=== PATIENT | female | born 1990 | race Caucasian/White ===

== ENCOUNTER 2021-10-30 20:03 | Inpatient (IN) | payer MEDICAID, SELFPAY ==
--- NOTE | ~2021-10-30 | XR_ITS ---
EXAMINATION: PORTABLE CHEST 1 VIEW CLINICAL INFORMATION: SOB . COMPARISON: No recent pertinent prior studies are available for comparison. TECHNIQUE: Portable frontal view of the chest was obtained. FINDINGS: The lungs are well expanded. No focal infiltrate, effusion, edema, or pneumothorax. Cardiac and mediastinal silhouettes are within normal limits for technique. No acute bony abnormality seen. XR/XR chest 1V IMPRESSION: No evidence of acute disease.
[2021-10-30 20:16] VITALS: BP 132/80; PULSE 128; RESP 18; TEMP 36.7; O2SAT 93; BMI 27.4
[2021-10-30] MEDS: Albuterol Sulfate 7.5 MG, Albuterol Sulfate (0.083%) 2.5 MG 10 MG INHALE ×2 (20:28→23:11)
[2021-10-30 20:29] VITALS: PULSE 125; RESP 18; O2SAT 98
[2021-10-30] MEDS: hydrOXYzine HCL 25 MG TABLET PO (21:18)
[2021-10-30 21:52] LABS: MANUAL DIFF FLAG NO
[2021-10-30 22:00] LABS: Basophils Absolute Auto 0.1 X10*3/uL (0.0-0.2); Basophils Percent Auto 0.3 % (0-2); Eosinophils Absolute Auto 0.1 X10*3/uL (0.0-0.4); Eosinophils Percent Auto 0.6 % (0-4); Hematocrit 37.3 % (37.0-47.0); Hemoglobin 12.9 g/dl (12.0-16.0); Imm Gran Abs Auto 0.22 X10*3/uL (0.00-0.03); Lymphocytes Absolute Auto 1.2 X10*3/uL (1.2-4.9); Lymphocytes Percent Auto 5.3 % (20-40); Mean Corpuscular HGB Conc 34.6 g/dl (31.0-35.0); Mean Corpuscular Hemoglobin 31.7 pg (27.0-33.0); Mean Corpuscular Volume 91.6 fL (80.0-98.0); Mean Platelet Volume 10.7 fL (9.4-12.3); Monocytes Absolute Auto 0.8 X10*3/uL (0.1-1.2); Monocytes Percent Auto 3.6 % (2-11); Neutrophils Absolute Auto 19.9 x10*3/uL (2.0-8.3); Neutrophils Percent Auto 89.2 % (45-73); Platelet Count 299 X10*3/uL (160-400); Red Blood Count 4.07 X10*6/uL (4.20-5.50); Red Cell Distribution Width 12.7 % (11.0-16.0); White Blood Count 22.3 X10*3/uL (4.8-10.8)
[2021-10-30 22:12] VITALS: BP 115/83; PULSE 122; RESP 20; TEMP 37
--- NOTE | 2021-10-30 22:12 | ED_ITS ---
HPI - SOB/Dyspnea General Chief Complaint: Dyspnea Stated Complaint: Asthma Time Seen by Provider: 10/30/21 20:15 Source: patient Mode of arrival: ambulatory History of Present Illness HPI Narrative: 31-year-old female with history of asthma presents increasing shortness of breath for the past 4 days without fever chills and denies any chest pain/palpitations. Patient denies any smoking history and states that she has been on 2 sequential steroid tapers and return from [place] 1 week ago and finished her taper from that visit yesterday. Patient states she is now coughing up greenish sputum and feels as though she may have a pneumonia. Related Data Allergies Allergy/AdvReac Type Severity Reaction Status Date / Time Unable to Assess Allergy Verified 10/30/21 20:15 Review of Systems Review of Systems: Pertinent positives and negatives as stated in HPI 10 point review of systems is otherwise negative. [facility] Past Medical History Source: nursing notes reviewed Social History Social History Advance Directives: No Advance Directives Information Provided: No Physical Exam Vital Signs: Vital Signs: Last Vital Signs Temp 98.6 F 10/30/21 22:12 Pulse 135 H 10/30/21 23:27 Resp 20 10/30/21 23:27 BP 98/63 10/30/21 23:27 Pulse Ox 98 10/30/21 23:27 O2 Del Method 10/30/21 23:27 O2 Flow Rate 2 10/30/21 23:27 Oxygen Flow Rate 2 10/30/21 20:16 BMI result Body Mass Index 27.4 VITAL SIGNS: Reviewed. GENERAL: Well developed, well nourished, in no acute distress. HEAD: Normocephalic/atraumatic EYES: PERRLA, EOMI EARS: Ext canals without abnormality OROPHARYNX: no oral lesions noted, posterior pharynx clear LUNGS: Tachypnea, expiratory wheeze, increased work of breathing. SpO2<93> CARDIOVASCULAR: Regular rate and rhythm without noted murmurs ABDOMEN: Soft, non-tender, non-distended with bowel sounds. MUSCULOSKELETAL: No tenderness, deformities, or effusions noted on gross inspection. EXTREMITIES: No cyanosis, clubbing or edema. SKIN: Inspection of the skin reveals no rashes NEUROLOGIC: Alert and oriented x 4. Strength and sensation to light touch were grossly intact x 4. Course Course Course Narrative: 31-year-old female with history and clinical presentation likely secondary to bronchitis and asthma, leukocytosis is secondary to steroids and the elevated lactic acid is secondary to patient's albuterol treatments. Patient received 2 hour long albuterol treatments, azithromycin, as well as 2 g of Mag sulfate Patient remains congested, nasal cannula supplemental oxygen was removed and patient is noted to be oxygenating at approximately 89-90% on room air. Patient did receive initial dose azithromycin, and patient is also quite anxious. I discussed the case with inpatient hospitalist who accepts admission. MDM - SOB/Dyspnea Lab Data Result diagrams: 10/30/21 21:46 10/30/21 21:46 Labs: Lab Results 10/30/21 10/30/21 10/30/21 Range/Units 21:46 21:46 21:46 WBC 22.3 H (4.8-10.8) X10*3/uL RBC 4.07 L (4.20-5.50) X10*6/uL Hgb 12.9 (12.0-16.0) g/dl Hct 37.3 (37.0-47.0) % MCV 91.6 (80.0-98.0) fL MCH 31.7 (27.0-33.0) pg MCHC 34.6 (31.0-35.0) g/dl RDW 12.7 (11.0-16.0) % Plt Count 299 (160-400) X10*3/uL MPV 10.7 (9.4-12.3) fL Immature Gran % (Auto) 1.0 H (0.0-0.4) % Neut % (Auto) 89.2 H (45-73) % Lymph % (Auto) 5.3 L (20-40) % Montgomery % (Auto) 3.6 (2-11) % Eos % (Auto) 0.6 (0-4) % Baso % (Auto) 0.3 (0-2) % Lymph # (Auto) 1.2 (1.2-4.9) X10*3/uL Montgomery # (Auto) 0.8 (0.1-1.2) X10*3/uL Eos # (Auto) 0.1 (0.0-0.4) X10*3/uL Baso # (Auto) 0.1 (0.0-0.2) X10*3/uL Abs Immat Gran (auto) 0.22 H (0.00-0.03) X10*3/uL Absolute Neuts (auto) 19.9 H (2.0-8.3) x10*3/uL Absolute Nucleated RBC 0.000 (0.0-0.012) X10*3/uL Nucleated RBC % (auto) 0.0 (0.0-0.2) /100WBC D-Dimer High Sensitivty NG/ML Sodium 137 (135-145) mmol/L Potassium 4.5 (3.3-5.1) mmol/L Chloride 97 (96-108) mmol/L Carbon Dioxide 23 (22-29) mmol/L Anion Gap 22 H (12-20) BUN 13 (9-16) mg/dL Creatinine 0.89 (0.5-1.4) mg/dL Estim Creat Clear Calc 81.3 Estimated GFR > 60 Random Glucose 209 H (60-115) mg/dL Lactic Acid 2.2 H* (0.5-2.0) mmol/L Calcium 9.4 (8.4-10.2) mg/dL Total Bilirubin 0.3 (0.0-1.0) mg/dL AST 26 (5-31) U/L ALT 18 (0-31) U/L Alkaline Phosphatase 45 (39-117) U/L Total Protein 7.0 (6.5-8.0) g/dL Albumin 4.0 (3.5-5.0) g/dL Beta HCG, Quant < 2 mIU/mL 10/30/21 Range/Units 23:06 WBC (4.8-10.8) X10*3/uL RBC (4.20-5.50) X10*6/uL Hgb (12.0-16.0) g/dl Hct (37.0-47.0) % MCV (80.0-98.0) fL MCH (27.0-33.0) pg MCHC (31.0-35.0) g/dl RDW (11.0-16.0) % Plt Count (160-400) X10*3/uL MPV (9.4-12.3) fL Immature Gran % (Auto) (0.0-0.4) % Neut % (Auto) (45-73) % Lymph % (Auto) (20-40) % Montgomery % (Auto) (2-11) % Eos % (Auto) (0-4) % Baso % (Auto) (0-2) % Lymph # (Auto) (1.2-4.9) X10*3/uL Montgomery # (Auto) (0.1-1.2) X10*3/uL Eos # (Auto) (0.0-0.4) X10*3/uL Baso # (Auto) (0.0-0.2) X10*3/uL Abs Immat Gran (auto) (0.00-0.03) X10*3/uL Absolute Neuts (auto) (2.0-8.3) x10*3/uL Absolute Nucleated RBC (0.0-0.012) X10*3/uL Nucleated RBC % (auto) (0.0-0.2) /100WBC D-Dimer High Sensitivty 204 NG/ML Sodium (135-145) mmol/L Potassium (3.3-5.1) mmol/L Chloride (96-108) mmol/L Carbon Dioxide (22-29) mmol/L Anion Gap (12-20) BUN (9-16) mg/dL Creatinine (0.5-1.4) mg/dL Estim Creat Clear Calc Estimated GFR Random Glucose (60-115) mg/dL Lactic Acid (0.5-2.0) mmol/L Calcium (8.4-10.2) mg/dL Total Bilirubin (0.0-1.0) mg/dL AST (5-31) U/L ALT (0-31) U/L Alkaline Phosphatase (39-117) U/L Total Protein (6.5-8.0) g/dL Albumin (3.5-5.0) g/dL Beta HCG, Quant mIU/mL Procedures EJ/Peripheral Line Arm R: Time Out Performed: No Skin Cleansed in Sterile Fashion: Yes Size (gauge): 20 IV Secured and Dressing Applied: Yes Patient Tolerated Procedure: well and no complications Additional Comments: Placed under ultrasound guidance. Discharge Plan Discharge Clinical Impression: Asthma with exacerbation Patient Disposition: Admitted As Inpatient
[2021-10-30 22:13] LABS: Alanine Aminotransferase 18 U/L (0-31); Alkaline Phosphatase 45 U/L (39-117); Anion Gap 22 (12-20); Aspartate Amino Transferase 26 U/L (5-31); Bilirubin Total 0.3 mg/dL (0.0-1.0); Blood Urea Nitrogen 13 mg/dL (9-16); Calcium 9.4 mg/dL (8.4-10.2); Carbon Dioxide 23 mmol/L (22-29); Chloride 97 mmol/L (96-108); Creatinine Clr Calc Pharmacy 81.3; Estimated Glomerular Filt Rate > 60; Glucose Random 209 mg/dL (60-115); Lactic Acid 2.2 mmol/L (0.5-2.0); Potassium 4.5 mmol/L (3.3-5.1); Sodium 137 mmol/L (135-145)
[2021-10-30] MEDS: Magnesium Sulfate/H2O 2 GM/50 ML PIGGYBACK IV (22:18)
[2021-10-30 22:20] LABS: HCG Quantitative < 2 mIU/mL
[2021-10-30] MEDS: 0.9 % Sodium Chloride 1,000 ML 999 ML IV (22:31)
[2021-10-30 23:19] LABS: D Dimer High Sensitivity 204 NG/ML
[2021-10-30 23:27] VITALS: BP 98/63; PULSE 135; RESP 20; O2SAT 98
[2021-10-30 23:50] LABS: Reflex Lactate? Lactic Acid Added
[2021-10-31] VITALS (8 sets, daily range): BP systolic 117–130; BP diastolic 73–90; PULSE 104–124; RESP 16–25; TEMP 36.3–37.1; O2SAT 90–98
--- NOTE | 2021-10-31 | ECG_ITS ---
Test Reason : CHEST TIGHTNESS Blood Pressure : / mmHG Vent. Rate : 109 BPM Atrial Rate : 109 BPM P-R Int : 132 ms QRS Dur : 070 ms QT Int : 328 ms P-R-T Axes : 058 046 040 degrees QTc Int : 441 ms Sinus tachycardia Otherwise normal ECG No previous ECGs available Referred By: Rachna Carlisle Electronically Signed By:YAW [employer]ATS
[2021-10-31] MEDS: Azithromycin 500 MG TABLET PO (00:05)
[2021-10-31 00:45] LABS: COVID-19 Test Negative (Negative)
[2021-10-31] MEDS: hydrOXYzine HCL 25 MG TABLET PO ×3 (00:45→18:33)
--- NOTE | 2021-10-31 01:46 | P.HPHOSP_ITS ---
History of Present Illness Date of Service: 10/31/21 Chief Complaint: Asthma exacerbation 31-year-old female with past medical history of asthma presents to the hospital on asthma exacerbation. Patient reports that her symptoms started yesterday associated with cough x3 days and green phlegm. Patient is very a nxious, room but reports wheezing, not responding to her inhalers or nebulizer at home. She reports that this is her 3rd hospital admission within the past 1 month for asthma exacerbation. She reports that besides this month she uses inhalers several times a week. She feels that her asthma is poorly controlled and very frustrated. She denies any fever or chills, no headache, no change in vision, no with chest pain, no abdominal pain nausea or vomiting, no diarrhea constipation, no urinary symptoms and no lower extremity edema. On arrival to the ED patient hemodynamically stable with O2 dropping to 88-90% on room air labs are significant for WBC count 22.3, lactic acid of 2.2, patient refused repeat blood work Review of Systems Review of Systems: Yes all other systems are reviewed and are negative [facility] Medical History (Updated 10/31/21 @ 06:34 by Madelyn Miller MD) Asthma Family History (Updated 10/31/21 @ 06:20 by Madelyn Miller MD) Other No family history of coronary artery disease Surgical History (Updated 10/31/21 @ 06:20 by Madelyn Miller MD) No pertinent past surgical history Social History (Updated 10/31/21 @ 06:33 by Madelyn Miller MD) Alcohol intake: current Patient Tobacco Use Status: Never used Tobacco Use of substances other than those prescribed or required for medical reasons: No Advance Directives: No Advance Directives Information Provided: No Meds Allergies Allergy/AdvReac Type Severity Reaction Status Date / Time Unable to Assess Allergy Verified 10/30/21 20:15 Physical Exam Vital Signs and Narrative: Vital Signs: Last Vital Signs Temp 98.6 F 10/30/21 22:12 Pulse 135 H 10/30/21 23:27 Resp 20 10/30/21 23:27 BP 98/63 10/30/21 23:27 Pulse Ox 98 10/30/21 23:27 O2 Del Method 10/30/21 23:27 O2 Flow Rate 2 10/30/21 23:27 Oxygen Flow Rate 2 10/30/21 20:16 BMI result Body Mass Index 27.4 Const: General: cooperative and no acute distress Orientation/cons ciousness: patient oriented x3 Eyes: General: appearance normal, both eyes and all related structures Pupils: Equal, round and reactive pupils present Resp: Other: decreased breath sounds Effort & Inspection: normal respiratory effort Cardio: Rate: regular rate Rhythm: regular rhythm GI: Palpation (GI): Soft to palpation Auscultation: normal bowel sounds Skin: General skin exam: no rashes or lesions noted Neuro: General: patient oriented x3 Cranial nerves: Yes Equal, round and reactive pupils present Cognition (Neuro): normal cognition Extrem: General: Yes normal to inspection and Yes no pedal edema Results Labs CBC and Chem 7: 10/30/21 21:46 10/30/21 21:46 Labs: Laboratory Results - last 24 hr 10/30/21 10/30/21 10/30/21 21:46 21:46 21:46 MCV 91.6 MCH 31.7 MCHC 34.6 RDW 12.7 Plt Count 299 MPV 10.7 Immature Gran % (Auto) 1.0 H Neut % (Auto) 89.2 H Lymph % (Auto) 5.3 L Woodson % (Auto) 3.6 Eos % (Auto) 0.6 Baso % (Auto) 0.3 Lymph # (Auto) 1.2 Woodson # (Auto) 0.8 Eos # (Auto) 0.1 Baso # (Auto) 0.1 Abs Immat Gran (auto) 0.22 H Absolute Neuts (auto) 19.9 H Absolute Nucleated RBC 0.000 Nucleated RBC % (auto) 0.0 D-Dimer High Sensitivty Anion Gap 22 H Estim Creat Clear Calc 81.3 Estimated GFR > 60 Random Glucose 209 H Lactic Acid 2.2 H* Calcium 9.4 Total Bilirubin 0.3 AST 26 ALT 18 Alkaline Phosphatase 45 Total Protein 7.0 Albumin 4.0 Beta HCG, Quant < 2 COVID-19 ([facility]IN) COVID-19 Clin Com 10/30/21 10/31/21 23:06 00:20 MCV MCH MCHC RDW Plt Count MPV Immature Gran % (Auto) Neut % (Auto) Lymph % (Auto) Woodson % (Auto) Eos % (Auto) Baso % (Auto) Lymph # (Auto) Woodson # (Auto) Eos # (Auto) Baso # (Auto) Abs Immat Gran (auto) Absolute Neuts (auto) Absolute Nucleated RBC Nucleated RBC % (auto) D-Dimer High Sensitivty 204 Anion Gap Estim Creat Clear Calc Estimated GFR Random Glucose Lactic Acid Calcium Total Bilirubin AST ALT Alkaline Phosphatase Total Protein Albumin Beta HCG, Quant COVID-19 ([facility]ARTIN) Negative COVID-19 Clin Com See Note Imaging Radiologist's Impressions: Impressions Chest X-Ray 10/30/21 21:55 IMPRESSION: No evidence of acute disease. Assessment and Plan (1) Asthma with exacerbation: Status: Acute (2) Acute respiratory failure with hypoxia: Status: Acute (3) Lactic acidosis: Status: Acute (4) Anxiety: Status: Acute Plan 31-year-old female with past medical history of asthma presents to the hospital with asthma exacerbation #Acute asthma exacerbation - possibly in the setting of viral infection, patient has cough, and sputum production chest - x-ray negative any evidence of pneumonia - will treat with IV Solu-Medrol, p.r.n. as well as scheduled DuoNeb - a poorly controlled asthma, as well as 3rd admission for asthma exacerbation to hospital will consult pulmonology - respiratory viral panel - given the significant cough and sputum production will treat with azithromycin # acute hypoxic respiratory failure - secondary to above - satting 88-90% on room air - continue breathing treatment, oxygen as required # lactic acidosis - secondary to hypoxia as well as likely albuterol treatment - IV fluids - patient refused repeat IV draws and lactic acid trending # anxiety - very anxious and restless - hydroxyzine p.r.n. Pt will require a minimum 2 night hospital stay for oxygen supplementation DVT prophylaxis: Lovenox Quality Stroke Does the patient have a stroke diagnosis?: No VTE Prior VTE?: No VTE Risk Level:: Medical - moderate - high VTE Device Contraindication: Treatment Not Indicated VTE Drug Contraindication: N/A - Med Ordered
[2021-10-31] MEDS: methylPREDNISolone Sod Succ 40 MG/ML VIAL IVPUSH ×2 (02:05→14:26)
[2021-10-31] MEDS: LORazepam 1 MG TABLET PO (02:05)
[2021-10-31 02:15] LABS: ~Lactic Acid-LAB USE ONLY 2.4 mmol/L (0.5-2.0)
--- NOTE | 2021-10-31 02:19 | PC.NURSE ---
Patient is alert and oriented x5, anxious. Patient noted to be dyspneic. .O2 applied at 2 LPM NC. O2 Sats 94-95% on O2 Sat at 2 LPM. Patient desats on RA to 88-89%. Patient afraid of needles and reports to be a very difficult stick.20 G IV line placed into R AC by Dr. Carlisle with use of US with brisk blood return noted. Patient noted to be very anxious every time IV line needs to be flashed or IV fluids and medications to be administered and requesting medication for anxiety. First Lactic Acid elevated 2.2, patient initially refused Lactic Acid repeat draw . This RN explained to the patient importance of monitoring of Lactic Acid and patient agreed for repeat draw which id 2.5. Dr. Miller notified of result of Lactic Acid redraw 2.5 via [employer] message. Mediations administered per APR. Patient requested food and given tuna fish salad, ice cream.
[2021-10-31 04:01] LABS: Reflex Lactate? 2 Y
[2021-10-31] MEDS: 0.9 % Sodium Chloride Flush 3 ML SYRINGE IVFLUSH ×2 (07:15→15:31)
[2021-10-31] MEDS: Benzonatate 100 MG CAPSULE 200 MG PO (07:23)
--- NOTE | 2021-10-31 10:22 | PHA.MEDREC ---
Pharmacy Consult ? Medication Reconciliation Pharmacy has completed the medication reconciliation.
[2021-10-31] MEDS: Albuterol/Iprat 2.5/0.5MG 3 ML AMPUL.NEB INHALE ×2 (11:27→19:36)
--- NOTE | 2021-10-31 12:37 | PM.CNPUL ---
History of Present Illness History of Present Illness Consult date: 10/31/21 Chief complaint: Asthma exacerbation Narrative: This is an in patient pulmonary consultation. The patient is a 31-year-old female with past medical history of asthma presents to the hospital on asthma exacerbation.? Patient reports that her symptoms started yesterday associated with cough x3 days and green phlegm.? Patient is very anxious, room but reports wheezing, not responding to her inhalers or nebulizer at home.? She reports that this is her 3rd hospital admission within the past 1 month for asthma exacerbation.? She reports that besides this month she uses inhalers several times a week.? She feels that her asthma is poorly controlled and very frustrated.? On arrival to the ED patient hemodynamically stable? with O2 dropping to 88-90% on room air, labs are significant for WBC count 22.3, lactic acid of 2.2. I did review her bloodwork at [facility] and CXR. HEr WBC was also elevated with a left shift. Her CXR with clear. Although she does have crackles at the bases. Review of Systems Constitutional: Constitutional: Denies fever(s) Eyes: Eyes: Denies diplopia ENT: Denies change in voice Cardiovascular: Cardiovascular: Denies chest pain, Reports dyspnea and Reports dyspnea on exertion Respiratory: Respiratory: Reports cough, Reports dyspnea, Reports dyspnea on exertion and Reports wheezing Gastrointestinal: Gastrointestinal: Reports no additional gastrointestinal complaints Musculoskeletal: Musculoskeletal: Reports no additional musculoskeletal complaints Neurologic: Reports system reviewed and no additional complaints, except as documented Allergic/Immunologic: Allergic/Immunologic: Reports wheezing PMFSH Past Medical History Medical History (Updated 10/31/21 @ 12:44 by Ruel Amaya MD) Asthma Family History Family History (Updated 10/31/21 @ 06:20 by Madelyn Miller MD) Other No family history of coronary artery disease Surgical History Surgical History (Updated 10/31/21 @ 06:20 by Madelyn Miller MD) No pertinent past surgical history Social History Social History (Updated 10/31/21 @ 06:33 by Madelyn Miller MD) Alcohol intake: current Patient Tobacco Use Status: Never used Tobacco Use of substances other than those prescribed or required for medical reasons: No Advance Directives: No Advance Directives Information Provided: No Meds Allergies Allergy/AdvReac Type Severity Reaction Status Date / Time Unable to Assess Allergy Verified 10/30/21 20:15 Active Medications: Current Medications Acetaminophen (Acetaminophen 325 Mg Tablet) 650 mg PO Q6H PRN PRN Reason: Pain, Mild (Pain Scale 1-3) Albuterol/Ipratropium (Albuterol/Iprat 2.5/0.5mg 3 Ml Ampul.Neb) 3 ml INHALE RQ4H PRN PRN Reason: Shortness of Breath/Wheezing Albuterol/Ipratropium (Albuterol/Iprat 2.5/0.5mg 3 Ml Ampul.Neb) 3 ml INHALE RQ4H WHILE AWAKE [facility] Last Admin: 10/31/21 11:27 Dose: 3 ml Benzonatate (Benzonatate 100 Mg Capsule) 200 mg PO TID PRN PRN Reason: cough Last Admin: 10/31/21 07:23 Dose: 200 mg Hydroxyzine HCl (Hydroxyzine Hcl 25 Mg Tablet) 25 mg PO Q6H PRN PRN Reason: anxiety/restlessness Last Admin: 10/31/21 07:24 Dose: 25 mg Levofloxacin (Levofloxacin 500 Mg Tablet) 500 mg PO Q24H [facility] Methylprednisolone Sodium Succinate (Methylprednisolone Sod Succ 40 Mg/Ml Vial) 40 mg IVPUSH Q12H [facility] Last Admin: 10/31/21 02:05 Dose: 40 mg Nicotine Polacrilex (Nicotine Polacrilex 2 Mg Gum) 2 mg BUCCAL Q2H PRN PRN Reason: smoking Ondansetron HCl (Ondansetron Hcl 4 Mg/2 Ml Vial) 4 mg IVPUSH Q8H PRN PRN Reason: Nausea and Vomiting Sodium Chloride (0.9 % Sodium Chloride Flush 3 Ml Syringe) 3 ml IVFLUSH QSHIFT [facility] Last Admin: 10/31/21 07:15 Dose: 3 ml Home Medications Medication Instructions Recorded Confirmed Last Taken Type albuterol sulfate 2.5 mg/3 mL 1 vial inhalation Q6H PRN wheezing 10/31/21 10/31/21 Unknown History (0.083 %) solution for nebulization albuterol sulfate 90 mcg/actuation 2 puff inhalation Q4H PRN wheezing 10/31/21 10/31/21 Unknown History aerosol inhaler (ProAir HFA) desogestrel 0.15 mg-ethinyl 1 tab PO DAILY 10/31/21 10/31/21 Unknown History estradiol 0.03 mg tablet (Apri) loratadine 10 mg tablet 1 tab PO DAILY 10/31/21 10/31/21 Unknown History montelukast 10 mg tablet 1 tab PO BEDTIME 10/31/21 10/31/21 Unknown History multivitamin 1 tab PO DAILY 10/31/21 10/31/21 Unknown History pantoprazole 40 mg tablet,delayed 1 tab PO DAILY 10/31/21 10/31/21 Unknown History release Physical Exam Vital Signs: Vital Signs: Last Vital Signs Temp 97.6 F 10/31/21 05:12 Pulse 104 H 10/31/21 05:12 Resp 18 10/31/21 11:29 BP 122/83 10/31/21 05:12 Pulse Ox 98 10/31/21 07:12 O2 Del Method 10/31/21 07:12 O2 Flow Rate 2 10/31/21 07:12 Oxygen Flow Rate 2 10/30/21 20:16 BMI result Body Mass Index 27.4 Const: General: comfortable HEENT: Head: Yes normal to inspection Eyes: General: appearance normal, both eyes and all related structures Neck: Neck: Yes supple Chest: Chest palpation & inspection: normal inspection of the chest Resp: Effort & Inspection: Actively coughing Auscultation: crackles bilateral at the base, rhonchi and wheezes Cardio: Rate: regular rate Heart sounds: S1 normal heart sound present and S2 normal heart sound present GI: Auscultation: normal bowel sounds Skin: General skin exam: no rashes or lesions noted Extrem: General: Yes no clubbing, cyanosis or edema Results Laboratory Findings CBC and BMP: 10/30/21 21:46 10/30/21 21:46 Abnormal lab findings: Abnormal Labs 10/30/21 10/30/21 10/30/21 21:46 21:46 21:46 WBC 22.3 H RBC 4.07 L Immature Gran % (Auto) 1.0 H Neut % (Auto) 89.2 H Lymph % (Auto) 5.3 L Abs Immat Gran (auto) 0.22 H Absolute Neuts (auto) 19.9 H Anion Gap 22 H Random Glucose 209 H Lactic Acid 2.2 H* Lactic Acid F/U @ 2Hr 10/31/21 01:53 WBC RBC Immature Gran % (Auto) Neut % (Auto) Lymph % (Auto) Abs Immat Gran (auto) Absolute Neuts (auto) Anion Gap Random Glucose Lactic Acid Lactic Acid F/U @ 2Hr 2.4 H* Assessment and Plan (1) Acute respiratory failure with hypoxia: Status: Acute (2) Asthma with exacerbation: Status: Acute (3) Bronchiolitis: Status: Acute Plan continue solumedrol today Start LEvaquin PO Mucinex Bloodwork Acapella valve continue nebs Will need pulmonary f/u Procedures Date of Service Date of Service: 10/31/21
--- NOTE | 2021-10-31 12:39 | PC.NURSE ---
Addendum entered by Rupesh Kidd 10/31/21 12:45: Pt is on 2L nasal canuula d/o o2 is on 90. Original Note: RN received report from ER nurse Serena, Pt came in from the ER. Pt BP are stable, HR slightly tachy, pt right and left lower lobes sounded like rales. Upper lung sounds are clear. pt is on the telemetry ans it shows sinus Tachy. pt is jitter. pt was given a gown and re-position. Pt is a/o x 4. Will continue to monitor.
[2021-10-31] MEDS: levoFLOXacin 500 MG TABLET PO (14:25)
--- NOTE | 2021-10-31 14:29 | PC.NURSE ---
Pt appears anxious, provider has been notofied to change meds to Lorazapam. Pt meds were administered by provider order, pt lung sounds are wheezing bilateral. Telemetry shows pt is sinus Tachy. will continue to monitor.
--- NOTE | 2021-10-31 14:47 | PM.EVENT ---
Event Note Date of Service: 10/31/21 Event Note: Pt seen and evaluated with mother and father at bedside. She is quite anxious and aggitated. Reporting burning pain at IV site. She is not drinking much water. Continues to report shortness of breath, worse with her anxiety. Continues on 2L O2 via NC. Ongoing chest congestion congestion. Diffuse bilateral wheezing with slightly coarse lung sounds. She was seen by Dr. Gray. Not sleeping well. Plan: -D/c azithromycin. Continue levquin per pulm for bronchitis -Chest percussion therapy per pulm -Continue supplemental O2 to maintain O2 sat >93% -IV solu-medrol -Duonebs prn -Mucinex and benzonatate prn -Lorazepam prn for anxiety/aggitation. Can also use hydroxyzine prn -Trazodone prn bedtime -Pt declines IV fluids. Encourage PO fluids -Leukocytosis likely d/t two courses outpt prednisone. Trend CBC am
--- NOTE | 2021-10-31 15:33 | PC.NURSE ---
Pt was sleeping, pt IV was flush and it was patent.
[2021-10-31] MEDS: LORazepam 0.5 MG TABLET PO (17:23)
--- NOTE | 2021-10-31 17:24 | PC.NURSE ---
Pt was given Lorazepan d/t agitation and restless by provider order. will continue to monitor.
--- NOTE | 2021-10-31 18:40 | PC.NURSE ---
Pt was given atarax d/t agitation and severe anxiety. Pt boyfriend is at beside. pt was complaining she couldn't breath and she was sinus tach 140 d/t labs were drawn, RN helped her with persued deep breathing and her HR is coming down. will continue to monitor.
[2021-10-31 18:59] LABS: ~Lactic Acid-LAB USE ONLY 3.5 mmol/L (0.5-2.0)
--- NOTE | 2021-10-31 19:03 | PC.NURSE ---
Addendum entered by Rupesh Kidd 10/31/21 19:08: Pt was given Lorazapan and Atarax by provider order. Original Note: Pt BP is stable, pt is on the telemetry and it shows sinus Tachy, pt pupil are dilated arounf 6-7mm and RR are 25. RN reported to Dr. Treviño at 6:57 p.m. via tiger text. RN will give report to nurse landon the socorro.
[2021-10-31] MEDS: traZODone HCL 50 MG TABLET PO (20:37)
[2021-10-31] MEDS: guaiFENesin DM 600/30 1 TAB TAB.ER.12H 2 TAB PO (20:37)
--- NOTE | 2021-10-31 20:45 | PC.NURSE ---
patient refused Singulair stating she took her own,educated patient ,encouraged not to take any of own meds while in the hospital
[2021-10-31 21:42] LABS: Amphetamine Screen Urine Not Detected (Not Detect); Barbiturates, Urine Not Detected (Not Detect); Benzodiazepines Screen Urine Not Detected (Not Detect); Cannabinoid Screen Urine Not Detected (Not Detect); Cocaine Screen Urine Not Detected (Not Detect); Fentanyl, urine POSITIVE (Not Detect); Opiate Screen Urine Not Detected (Not Detect); Phencyclidine Screen Urine Not Detected (Not Detect)
[2021-11-01] VITALS: BP 119/70; PULSE 102; RESP 18; TEMP 36.7; O2SAT 98
[2021-11-01] MEDS: 0.9 % Sodium Chloride Flush 3 ML SYRINGE IVFLUSH ×2 (01:03→09:39)
[2021-11-01] MEDS: methylPREDNISolone Sod Succ 40 MG/ML VIAL IVPUSH ×2 (02:13→13:52)
--- NOTE | 2021-11-01 04:28 | PC.NURSE ---
Patient is sleeping, no signs of distress noted. Patient O2 Sat 95-98% on O2 at 2 LPM.
[2021-11-01 04:48] LABS: HIV AB/AG Nonreactive (Nonreactive); HIV Num 1 0.07 S/CO (0.00-0.99)
[2021-11-01] MEDS: Omeprazole 20 MG CAPSULE.DR PO (06:02)
[2021-11-01] MEDS: Albuterol/Iprat 2.5/0.5MG 3 ML AMPUL.NEB INHALE ×3 (07:23→15:15)
[2021-11-01 07:26] VITALS: PULSE 106; RESP 20; O2SAT 96
[2021-11-01 09:02] VITALS: BP 126/77; PULSE 109; RESP 19; TEMP 36.8; O2SAT 95
[2021-11-01] MEDS: Multivitamin TABLET 1 TAB PO (09:39)
[2021-11-01] MEDS: guaiFENesin DM 600/30 1 TAB TAB.ER.12H 2 TAB PO (09:39)
[2021-11-01] MEDS: Loratadine 10 MG TABLET PO (09:39)
--- NOTE | 2021-11-01 09:50 | MHC.CM.PN ---
PATIENT IS FULLY INDEPENDENT WITH HER ADLS SHE DOES RELIES ON INHALERS AND REPORTS EXCESSIVE USE LATELY. SHE IS COVID [place] SHE MAY NEED A RETURN TO WORK NOTE. SHE IS HOPING TO BE WELL ENOUGH TO RETURN HOME TODAY CASE MANAGEMENT FOLLOWING
[2021-11-01 11:28] VITALS: PULSE 107; O2SAT 97
--- NOTE | 2021-11-01 11:48 | HO.PM.IMPN ---
Subjective Subjective Date of Service: 11/01/21 Review of Systems Follow-up asthma exacerbation Feeling better but still wheezy Physical Exam Vital Signs: Vital Signs: Last Vital Signs Temp 98.3 F 11/01/21 09:02 Pulse 107 H 11/01/21 11:28 Resp 19 11/01/21 09:02 BP 126/77 11/01/21 09:02 Pulse Ox 95 11/01/21 09:02 O2 Del Method 11/01/21 09:02 O2 Flow Rate 2 11/01/21 09:02 Oxygen Flow Rate 2 10/30/21 20:16 BMI result Body Mass Index 27.4 Appearing in no acute distress lung sounds expiratory wheezing heart regular rate rhythm, clear S1, S2 positive bowel sounds, abdomen is soft, nontender neuro patient is alert x3, no focal deficits Objective Data Active Medications Acetaminophen (Acetaminophen 325 Mg Tablet) 650 mg PO Q6H PRN PRN Reason: Pain, Mild (Pain Scale 1-3) Albuterol/Ipratropium (Albuterol/Iprat 2.5/0.5mg 3 Ml Ampul.Neb) 3 ml INHALE RQ4H PRN PRN Reason: Shortness of Breath/Wheezing Albuterol/Ipratropium (Albuterol/Iprat 2.5/0.5mg 3 Ml Ampul.Neb) 3 ml INHALE RQ4H WHILE AWAKE [facility] Last Admin: 11/01/21 11:28 Dose: 3 ml Documented By: BRESNE Benzonatate (Benzonatate 100 Mg Capsule) 200 mg PO TID PRN PRN Reason: cough Last Admin: 10/31/21 07:23 Dose: 200 mg Documented By: COOPEJames Guaifenesin/Dextromethorphan (Guaifenesin Dm 600/30 1 Tab Tab.Er.12h) 2 tab PO BID [facility] Last Admin: 11/01/21 09:39 Dose: 2 tab Documented By: DOBROJames Hydroxyzine HCl (Hydroxyzine Hcl 25 Mg Tablet) 25 mg PO Q6H PRN PRN Reason: anxiety/restlessness Last Admin: 10/31/21 18:33 Dose: 25 mg Documented By: RUENDAnn Levofloxacin (Levofloxacin 500 Mg Tablet) 500 mg PO Q24H [facility] Last Admin: 10/31/21 14:25 Dose: 500 mg Documented By: ALEYDA Loratadine (Loratadine 10 Mg Tablet) 10 mg PO DAILY [facility] Last Admin: 11/01/21 09:39 Dose: 10 mg Documented By: OBIE Lorazepam (Lorazepam 0.5 Mg Tablet) 0.5 mg PO Q8H PRN PRN Reason: anxiety Last Admin: 10/31/21 17:23 Dose: 0.5 mg Documented By: ALEYDA Methylprednisolone Sodium Succinate (Methylprednisolone Sod Succ 40 Mg/Ml Vial) 40 mg IVPUSH Q12H [facility] Last Admin: 11/01/21 02:13 Dose: 40 mg Documented By: VICKI Montelukast Sodium (Montelukast Sodium 10 Mg Tablet) 10 mg PO BEDTIME [facility] Last Admin: 10/31/21 20:40 Dose: Not Given Documented By: DICKSON Non-Admin Reason: pt states she took her own pill Multivitamins/Vitamin C (Multivitamin Tablet) 1 tab PO DAILY [facility] Last Admin: 11/01/21 09:39 Dose: 1 tab Documented By: OBIE Nicotine Polacrilex (Nicotine Polacrilex 2 Mg Gum) 2 mg BUCCAL Q2H PRN PRN Reason: smoking Non-Formulary Medication (Desogestrel-Ethinyl Estradiol [Apri]) 1 tab PO DAILY [facility] Omeprazole (Omeprazole 20 Mg Capsule.Dr) 20 mg PO DAILY@0630 [facility] Last Admin: 11/01/21 06:02 Dose: 20 mg Documented By: VICKI Ondansetron HCl (Ondansetron Hcl 4 Mg/2 Ml Vial) 4 mg IVPUSH Q8H PRN PRN Reason: Nausea and Vomiting Sodium Chloride (0.9 % Sodium Chloride Flush 3 Ml Syringe) 3 ml IVFLUSH QSHIFT [facility] Last Admin: 11/01/21 09:39 Dose: 3 ml Documented By: OBIE Trazodone HCl (Trazodone Hcl 50 Mg Tablet) 50 mg PO BEDTIME [facility] Last Admin: 10/31/21 20:37 Dose: 50 mg Documented By: DICKSON Labs CBC & Chem 7: 10/30/21 21:46 10/30/21 21:46 Labs: Laboratory Results - last 24 hr 10/31/21 10/31/21 10/31/21 18:35 18:35 20:49 Lactic Acid F/U @ 4Hr 3.5 H* Urine Opiates Screen Not Detected Urine Fentanyl Screen POSITIVE H Ur Barbiturates Screen Not Detected Ur Phencyclidine Scrn Not Detected Ur Amphetamines Screen Not Detected U Benzodiazepines Scrn Not Detected Urine Cocaine Screen Not Detected U Marijuana (THC) Screen Not Detected HIV 1&2 Ab/P24 Ag 4thGn Nonreactive Microbiology Microbiology Results: Microbiology 10/30/21 22:08 Blood Culture - Preliminary Blood - Venous No growth after 24 hours. 10/30/21 22:08 Blood Culture - Preliminary Blood - Venous No growth after 24 hours. Assessment and Plan (1) Acute respiratory failure with hypoxia: Status: Acute Plan 31-year-old woman admitted with acute asthma exacerbation hypoxia Acute hypoxic respiratory failure secondary to acute asthma exacerbation Initial oxygen saturation 88% on room air, on supplemental oxygen Chest x-ray negative for pneumonia Continue IV Solu-Medrol and scheduled [facility] Pulmonology consultation Check respiratory pathogen panel Lactic acidosis secondary to hypoxia and albuterol treatments Treated with IV fluids Anxiety Hydroxyzine and Ativan as needed DVT prophylaxis low risk, early ambulation Attending Dr. Bailon Full code Continue hospitalization for treatment of asthma exacerbation requiring IV steroids and scheduled respiratory treatments Quality Stroke Does the patient have a stroke diagnosis?: No VTE Prior VTE?: No VTE Risk Level:: Medical - moderate - high VTE Device Contraindication: Treatment Not Indicated VTE Drug Contraindication: N/A - Med Ordered
--- NOTE | 2021-11-01 12:06 | P.CDIC_ITS ---
CDI Concurrent Query Documentation Clarification: PHYSICIAN'S DOCUMENTATION REQUEST Date of Query: 11/01/21 1207 Patient Name: Sandra Cook Admit Date: 10/31/21 Dear Doctor, Please review the following and provide your response in the progress notes. Clinical Indicators: Risk Factors/Clinical Indicators/Treatments Asthma exacerbation IV Solumedrol poorly controlled asthma. Based on the above, please clarify in the Progress Notes further specificity regarding the type and acuity of the asthma: Type: * Mild intermittent - less than 2x/week * Mild persistent - more than 2x/week but not daily * Moderate persistent - daily and may restrict physical activity * Severe persistent - throughout the day with frequent attacks, limiting activities * Exercise induced * Other ? please specify * Unable to determine Acuity: * With acute exacerbation * With status asthmaticus * Uncomplicated * Unable to determine Use of terms such as suspected, likely, concern for, or probable (associated with a specific diagnosis that is being evaluated, monitored, or treated as if it exists) are acceptable and can be coded in the inpatient setting, when documented at the time of discharge. Thank you, Rosalinda Keyes [facility], CDIS Extension: [phone] Please use your independent medical judgment in providing your response. THIS QUERY IS PART OF THE PERMANENT MEDICAL RECORD Other Diagnosis: Mild persistent with acute exacerbation
--- NOTE | 2021-11-01 12:06 | MHC.CDI.CONC ---
CDI Concurrent Query Documentation Clarification: PHYSICIAN'S DOCUMENTATION REQUEST Date of Query: 11/01/21 1207 Patient Name: Sandra Cook Admit Date: 10/31/21 Dear Doctor, Please review the following and provide your response in the progress notes. Clinical Indicators: Risk Factors/Clinical Indicators/Treatments Asthma exacerbation IV Solumedrol poorly controlled asthma. Based on the above, please clarify in the Progress Notes further specificity regarding the type and acuity of the asthma: Type: Mild intermittent - less than 2x/week Mild persistent - more than 2x/week but not daily Moderate persistent - daily and may restrict physical activity Severe persistent - throughout the day with frequent attacks, limiting activities Exercise induced Other ? please specify Unable to determine Acuity: With acute exacerbation With status asthmaticus Uncomplicated Unable to determine Use of terms such as suspected, likely, concern for, or probable (associated with a specific diagnosis that is being evaluated, monitored, or treated as if it exists) are acceptable and can be coded in the inpatient setting, when documented at the time of discharge. Thank you, Rosalinda Keyes [facility], CDIS Extension: [phone] Please use your independent medical judgment in providing your response. THIS QUERY IS PART OF THE PERMANENT MEDICAL RECORD Other Diagnosis: Mild persistent with acute exacerbation
[2021-11-01] MEDS: levoFLOXacin 500 MG TABLET PO (13:52)
--- NOTE | 2021-11-01 14:13 | PM.DS ---
DS: Providers Provider Date of Service: 11/01/21 Date of admission: 10/31/21 01:37 Primary care physician: KERI Mejia Consults: 10/31/21 06:16 Consult to Pulmonology Routine Consulting Provider: Ruel Amaya Reason for consultation: poorly controlled asthma Has provider been notified: No Attending physician on discharge: Seng Bailon Discharging clinician: Natalya Amaya DS: Diagnosis Discharge Diagnosis (1) Acute respiratory failure with hypoxia: Status: Acute DS: Summary Hospital Course Hospital Course: HP as per admitting provider 31-year-old female with past medical history of asthma presents to the hospital on asthma exacerbation.? Patient reports that her symptoms started yesterday associated with cough x3 days and green phlegm.? Patient is very anxious, room but reports wheezing, not responding to her inhalers or nebulizer at home.? She reports that this is her 3rd hospital admission within the past 1 month for asthma exacerbation.? She reports that besides this month she uses inhalers several times a week.? She feels that her asthma is poorly controlled and very frustrated.? She denies any fever or chills, no headache, no change in vision, no with chest pain, no abdominal pain nausea or vomiting, no diarrhea constipation, no urinary symptoms and no lower extremity edema.?On arrival to the ED patient hemodynamically stable? with O2 dropping to 88-90% on room air labs are significant for WBC count 22.3, lactic acid of 2.2, patient refused repeat blood work . Acute hypoxic respiratory failure secondary to mild persistent asthma with acute exacerbation Initial oxygen saturation 88% on room air, on supplemental oxygen Chest x-ray negative for pneumonia Treated with IV Solu-Medrol and scheduled [facility] Pulmonology consultation recommend oral Levaquin, steroids albuterol Check respiratory pathogen panel Home with 5 days prednisone, 3 more days of Levaquin, continue albuterol Lactic acidosis secondary to hypoxia and albuterol treatments Treated with IV fluids Anxiety Hydroxyzine and Ativan while inpatient. Follow-up with primary care provider if antianxiety lytics are necessary Time Spent with Patient Time attestation: Total time spent providing and/or coordinating discharge services: Discharge coordination time: Greater than 30 minutes Quality: Safe Use of Opioids Does Pt have an Active Cancer Diagnosis on the Problem List?: No Quality: Stroke Does the patient have a stroke diagnosis?: No Physical Exam Vital Signs: Vital Signs: Last Vital Signs Temp 98.3 F 11/01/21 09:02 Pulse 107 H 11/01/21 11:28 Resp 19 11/01/21 09:02 BP 126/77 11/01/21 09:02 Pulse Ox 95 11/01/21 09:02 O2 Del Method 11/01/21 09:02 O2 Flow Rate 2 11/01/21 09:02 Oxygen Flow Rate 2 10/30/21 20:16 BMI result Body Mass Index 27.4 Appearing in no acute distress head is normocephalic atraumatic eyes pupils are PERRLA sclera is anicteric mouth throat mucous membranes are intact and moist neck is supple no lymphadenopathy, no JVD noted lung sounds are clear to auscultation heart regular rate rhythm, clear S1, S2 positive bowel sounds, abdomen is soft, nontender neuro patient is alert x3, no focal deficits DS: Data Data Completed and Pending Labs on day of discharge: Laboratory Results - last 24 hr 10/31/21 10/31/21 10/31/21 06:37 06:37 18:35 Lactic Acid F/U @ 4Hr 3.5 H* Urine Opiates Screen Urine Fentanyl Screen Ur Barbiturates Screen Ur Phencyclidine Scrn Ur Amphetamines Screen U Benzodiazepines Scrn Urine Cocaine Screen U Marijuana (THC) Screen HIV 1&2 Ab/P24 Ag 4thGn Resp Virus Cult Rapid TNP TNP 10/31/21 10/31/21 18:35 20:49 Lactic Acid F/U @ 4Hr Urine Opiates Screen Not Detected Urine Fentanyl Screen POSITIVE H Ur Barbiturates Screen Not Detected Ur Phencyclidine Scrn Not Detected Ur Amphetamines Screen Not Detected U Benzodiazepines Scrn Not Detected Urine Cocaine Screen Not Detected U Marijuana (THC) Screen Not Detected HIV 1&2 Ab/P24 Ag 4thGn Nonreactive Resp Virus Cult Rapid Preliminary micro results at discharge 10/30/21 22:08 Blood Culture - Preliminary Blood - Venous No growth after 24 hours. 10/30/21 22:08 Blood Culture - Preliminary Blood - Venous No growth after 24 hours. Discharge Plan Discharge Anticipated Discharge Date/Time: 11/01/21 14:06 Patient Disposition: Home, Self-Care Discharge Diagnosis: Asthma exacerbation with bronchitis Referrals: Yasmeen Stringer PA [Primary Care Provider] - 1 Week Ruel Amaya MD [Physician] - 1 Week Discharge Medications: New Mucus DM 30-600 mg Tablet Extended Release 12 Hr 2 tab PO BID Qty: 16 0RF prednisone 10 mg tablet 40 mg PO DAILY 5 Days Qty: 20 0RF levofloxacin 500 mg tablet 500 mg PO Q24H Qty: 3 0RF Continued multivitamin Tablet 1 tab PO DAILY desogestrel-ethinyl estradiol [Apri] 0.15-0.03 mg tablet 1 tab PO DAILY albuterol sulfate 2.5 mg /3 mL (0.083 %) solution for nebulization 1 vial inhalation Q6H PRN (Reason: wheezing) pantoprazole 40 mg tablet,delayed release (DR/EC) 1 tab PO DAILY montelukast 10 mg tablet 1 tab PO BEDTIME albuterol sulfate [ProAir HFA] 90 mcg/actuation HFA aerosol inhaler 2 puff INHALATION Q4H PRN (Reason: wheezing) loratadine 10 mg tablet 1 tab PO DAILY Discharge Orders: Discharge Order (Routine); Ordered 11/01/21 Ordered By: Natalya Amaya Diet: Advance to usual diet Activity on Discharge: As tolerated Stand Alone Forms: Patient Portal Discharge page Care Plan Goals: Complete resolution of symptoms Health Concerns: Acute asthma exacerbation Plan of Treatment: Follow-up with primary care provider as needed Take all medications as prescribed Assessment: See discharge summary
[2021-11-01 14:55] VITALS: BP 118/82; PULSE 98; RESP 14; TEMP 36.5; O2SAT 92
[2021-11-01 15:16] VITALS: PULSE 105; RESP 20; O2SAT 96
[2021-11-01 16:12] LABS: Adenovirus PCR Not Detected (Not Detect.); Bordetella parapertussis PCR Not Detected (Not Detect.); Bordetella pertussis PCR Not Detected (Not Detect.); Chlamydia pneumoniae PCR Not Detected (Not Detect.); Coronavirus 229E PCR Not Detected (Not Detect.); Coronavirus HKU1 PCR Not Detected (Not Detect.); Coronavirus NL63 PCR Not Detected (Not Detect.); Coronavirus OC43 PCR Not Detected (Not Detect.); Human metapneumovirus PCR Not Detected (Not Detect.); Influenza A PCR Not Detected (Not Detect.); Influenza B PCR Not Detected (Not Detect.); Mycoplasma pneumoniae PCR Not Detected (Not Detect.); Parainfluenza 1 PCR Not Detected (Not Detect.); Parainfluenza 2 PCR Not Detected (Not Detect.); Parainfluenza 3 PCR Not Detected (Not Detect.); Parainfluenza 4 PCR Not Detected (Not Detect.); RSV PCR Not Detected (Not Detect.); Rhino/Enterovirus PCR Detected (Not Detect.); SARS-CoV-2 PCR Not Detected (Not Detect.)
[2021-11-03 14:41] LABS: Immunoglobulin A 145 mg/dL (47-310); Immunoglobulin G 778 mg/dL (600-1640)
[2021-11-04 09:56] LABS: Immunoglobulin E 650 kU/L (<OR=114)
== END 2021-11-01 17:06 | disposition home or self-care (01) | DRG 141 ==
LOC: HO.ED 10-31 00:09 → HO.EDOVER 10-31 01:48
PROVIDERS: Hospitalist; Student in an Organized Health Care Education/Training Program; Admitting Provider Internal Medicine; Emergency Provider Student in an Organized Health Care Education/Training Program; PCP Physician Assistant Medical; Visit Provider Nurse Practitioner Acute Care
DX: J45.21 Mild intermittent asthma with (acute) exacerbation (principal); J96.01 Acute respiratory failure with hypoxia; E87.2 Acidosis; F41.9 Anxiety disorder, unspecified; Z79.3 Long term (current) use of hormonal contraceptives; Z79.899 Other long term (current) drug therapy
CPT/HCPCS: 36415; 71045; 80053; 80307; 82784; 82785; 83605; 84702; 85025; 85379; 87040; 87140; 87389; 87633; 87635; 93005; 94640; 99218; 99285; J2920; J3475

== ENCOUNTER → 2022-01-11 15:07 | Outpatient (BNVA) | payer MEDICAID, SELFPAY | PROVIDERS: PCP Physician Assistant Medical; Visit Provider Hospitalist | DX: J45.901 Unspecified asthma with (acute) exacerbation (principal); J30.9 Allergic rhinitis, unspecified; Z79.899 Other long term (current) drug therapy | CPT/HCPCS: 99212 ==

== ENCOUNTER → 2022-02-22 14:55 | Outpatient (BNVA) | payer MEDICAID, SELFPAY | PROVIDERS: PCP Physician Assistant Medical; Visit Provider Hospitalist | DX: J45.40 Moderate persistent asthma, uncomplicated (principal); J30.9 Allergic rhinitis, unspecified | CPT/HCPCS: 99212 ==

== ENCOUNTER → 2022-06-24 13:49 | Outpatient (BNVA) | payer OTHER, SELFPAY | PROVIDERS: PCP Physician Assistant Medical; Visit Provider Nurse Practitioner Family | DX: O99.512 Diseases of the respiratory system complicating pregnancy, second trimester (principal); J45.40 Moderate persistent asthma, uncomplicated; J30.9 Allergic rhinitis, unspecified; Z79.899 Other long term (current) drug therapy | CPT/HCPCS: 99212 ==

== ENCOUNTER 2022-08-23 14:29 | Outpatient (AMB) | payer OTHER, SELFPAY ==
--- NOTE | 2022-08-23 14:30 | MHC.OFFVIS ---
Intake Vital Signs 08/23/22 14:31 Height 5 ft 2 in BP 92/62 Blood Pressure Location Lt brachial Position Standing Pulse 98 Pulse Source Pulse Oximeter Pulse Oximetry (%) 98 Oxygen Delivery Method Room Air Intake Visit Reasons: asthma exacerbation Intake Note: pt is here for follow upand still not feeling the best, she states she is very tight, and using her inhaler more than ususal [employer] Fe[employer] Required: No Allergies No Known Allergies Allergy (Verified 08/23/22 14:34) HPI HPI Comments History of Present Illness Details The patient is a 32-year-old female with past medical history of asthma presents to the hospital on asthma exacerbation.? She reports that this is her 3rd hospital admission within the past 1 month for asthma exacerbation.? She reports that besides this month she uses inhalers several times a week.? She feels that her asthma is poorly controlled and very frustrated.? On arrival to the ED patient hemodynamically stable? with O2 dropping to 88-90% on room air, labs are significant for WBC count 22.3, lactic acid of 2.2. I did review her bloodwork at [facility] and CXR. HEr WBC was also elevated with a left shift. Her CXR with clear. Although she does have crackles at the bases. 01/11/2022 the patient is here for hospital follow-up visit. The patient has lifelong asthma. She has been uncontrolled. Recently she did see her primary care doctor and underwent additional breathing studies. The patient also was placed on Xopenex which she seems to be tolerating a lot better. She does have Symbicort as a maintenance inhaler. She also has been on allergy immunity therapy with drops for many years with that were not effective for her. She does have significant allergies. She has not had allergy testing in a few years. The patient does not have any birds at home denies any exposure to mold. The patient has not been hospitalized since her last hospitalization as [place] which is reassuring. Will try to maximize her respiratory therapy by adding a long-acting muscarinic antagonist to her regimen. The patient already has a nebulizer. I do believe that she will be a very good candidate for biologic therapy in view of her significant asthma and multiple hospitalizations. The patient did have pulmonary function studies relatively recent. She will bring a copy or I will try to get some of the results. Will follow-up in 6-8 weeks to Reassess and to review the blood work and to consider biologic therapies. 02/22/2022 the patient is here for a pulmonary follow-up visit. Overall the patient continues to do well. She did not get the Breztri inhaler for some reason. Therefore she has continued to use her Symbicort. She has a low-dose 80/4.5 mcg Symbicort. She does have some chest tightness on examination and still has to use her rescue inhaler couple times a week. Therefore we need to further optimize her therapy by switching over to breztri. I will recent again to the pharmacy. I have reassured her that is very similar medication but just a little bit more Bronchodilation. The patient did not get her blood work. She is concerned about getting blood work. Clinically the patient is doing well so therefore she can hold off on the blood work at this time. If however, during the springtime her symptoms worsen she should come in to get the blood work to further evaluate for the possibility of biologic therapy. Also getting the allergy testing will allow her to get a sense of potential triggers that could be activating her asthma overall the patient is doing well. 08/23/2022 the patient is here for a pulmonary follow-up visit. Now she is in her 2nd trimester. The patient continues to have significant chest tightness and wheezing. She has been using her nebulizer several times a day. She has also has a prescription for Symbicort Spiriva. But on further questioning she does not seem to be using them as prescribed. We did talk about the importance of doing so. In addition to that she does have wheezing on examination and chest tightness. I did provide her peak flow. Her peak flow was 450 mL. Explained to her that this is the her reassuring measurements. She is going to continue monitoring to make sure that she can also objectively assess her airway resistance. Patient also was provided budesonide. She was budesonide new morning along with albuterol since it appears that the nebulizer is more effective for her. [facility] Medical History (Updated 08/24/22 @ 08:31 by Ruel Amaya MD) Anxiety Asthma Asthma Bronchiolitis Chronic allergic rhinitis Surgical History (Updated 10/31/21 @ 06:20 by Madelyn Miller MD) No pertinent past surgical history Family History (Updated 10/31/21 @ 06:20 by Madelyn Miller MD) Other No family history of coronary artery disease Social History (Updated 10/31/21 @ 06:33 by Madelyn Miller MD) Alcohol intake: current Patient Tobacco Use Status: Never used Tobacco service: No Current occupational status: employed Review of Systems Const Denies chills, Denies fever(s), Denies headache(s) and Denies night sweats ENT Reports Normal hearing present, Denies headache(s), Denies nasal congestion, Denies nasal discharge, Denies sinus pain, Denies sinus pressure and Denies sore throat Card Denies chest pain, Denies leg edema, Reports dyspnea and Reports dyspnea on exertion Resp Denies chest congestion, Denies cough, Denies excessive phlegm production, Denies pain on inspiration, Denies pain with cough, Reports dyspnea, Reports dyspnea on exertion, Denies stridor and Reports wheezing Musc Denies myalgias Skin/Breast Denies rash Neuro Reports Normal hearing present and Denies headache(s) Aller/Immun Reports wheezing Physical Exam Vital Signs: Last Vital Signs Pulse 98 08/23/22 14:31 BP 92/62 08/23/22 14:31 Pulse Ox 98 08/23/22 14:31 Oxygen Delivery Method Room Air 08/23/22 14:31 Last Vital Signs Temp 97.6 F 10/31/21 05:12 Pulse 104 H 10/31/21 05:12 Resp 18 10/31/21 11:29 BP 122/83 10/31/21 05:12 Pulse Ox 98 10/31/21 07:12 O2 Del Method 10/31/21 07:12 O2 Flow Rate 2 10/31/21 07:12 Oxygen Flow Rate 2 10/30/21 20:16 BMI result Body Mass Index 27.4 Const General: comfortable HEENT Head: Yes normal to inspection Eyes General: appearance normal, both eyes and all related structures Neck Neck: Yes supple Chest Chest palpation & inspection: normal inspection of the chest Resp Effort & Inspection: prolonged expiratory phase Auscultation: no crackles, no rhonchi and no wheezes Cardio Rate: regular rate Heart sounds: S1 normal heart sound present and S2 normal heart sound present GI Auscultation: normal bowel sounds Skin General skin exam: no rashes or lesions noted Neuro Cranial nerves: Yes Normal hearing present Extrem General: Yes no clubbing, cyanosis or edema Assessment & Plan Assessment & Plan (1) Asthma: Code(s): J45.909 - Unspecified asthma, uncomplicated Qualifiers: Asthma severity: moderate Asthma persistence: persistent Asthma complication type: uncomplicated Qualified Code(s): J45.40 - Moderate persistent asthma, uncomplicated (2) Chronic allergic rhinitis: Code(s): J30.9 - Allergic rhinitis, unspecified (3) : Code(s): Z34.90 - Encounter for supervision of normal , unspecified, unspecified trimester Plan continue Symbicort continue Spiriva stopped Breztri Add BUdesonide 0.5mg neb daily Xopenex as needed continue singulair Needs to maintain her pox>95% while Measure peak flow, should contact us if her measurements decrease F/U 3-4 weeks Coding Level of Care Code Est Pt Level 4 (54075) Diagnoses Asthma J45.40 Asthma severity: moderate Asthma persistence: persistent Asthma complication type: uncomplicated Chronic allergic rhinitis J30.9 Z34.90 Time Spent (min) 19
[2022-08-23 14:31] VITALS: BP 92/62; PULSE 98; O2SAT 98
== END 2022-08-23 14:54 | disposition home or self-care (01) ==
PROVIDERS: PCP Physician Assistant Medical; Visit Provider Hospitalist
DX: J45.40 Moderate persistent asthma, uncomplicated (principal); J30.9 Allergic rhinitis, unspecified; Z33.1 Pregnant state, incidental
CPT/HCPCS: 99214

== ENCOUNTER → 2022-08-23 14:29 | Outpatient (BNVA) | payer OTHER, SELFPAY | PROVIDERS: PCP Physician Assistant Medical; Visit Provider Hospitalist | DX: O99.512 Diseases of the respiratory system complicating pregnancy, second trimester (principal); J45.41 Moderate persistent asthma with (acute) exacerbation; Z3A.00 Weeks of gestation of pregnancy not specified; Z79.899 Other long term (current) drug therapy | CPT/HCPCS: 99212 ==

== ENCOUNTER 2024-11-12 15:40 | Outpatient (AMB) | payer OTHER, SELFPAY ==
[2024-11-12 15:42] VITALS: BP 90/56; PULSE 73; O2SAT 96; BMI 23.8
--- NOTE | 2024-11-12 15:42 | MHC.OFFVIS ---
Vital Signs 11/12/24 15:42 Height 5 ft 2 in Weight 130 lb 1.164 oz BMI 23.8 BP 90/56 L Blood Pressure Location Lt brachial Position Sitting Pulse 73 Pulse Source Pulse Oximeter Pulse Oximetry (%) 96 Oxygen Delivery Method Room Air Intake Visit Reasons: asthma Leaflet Or Newspaper Deliverer Required: No Accompanied by: Self / Same As Patient Allergies No Known Allergies Allergy (Verified 11/12/24 15:45) HPI Comments Details: The patient is a 34-year-old female with past medical history of asthma presents to the hospital on asthma exacerbation.? She reports that this is her 3rd hospital admission within the past 1 month for asthma exacerbation.? She reports that besides this month she uses inhalers several times a week.? She feels that her asthma is poorly controlled and very frustrated.? On arrival to the ED patient hemodynamically stable? with O2 dropping to 88-90% on room air, labs are significant for WBC count 22.3, lactic acid of 2.2. I did review her bloodwork at [facility] and CXR. HEr WBC was also elevated with a left shift. Her CXR with clear. Although she does have crackles at the bases. 01/11/2022 the patient is here for hospital follow-up visit. The patient has lifelong asthma. She has been uncontrolled. Recently she did see her primary care doctor and underwent additional breathing studies. The patient also was placed on Xopenex which she seems to be tolerating a lot better. She does have Symbicort as a maintenance inhaler. She also has been on allergy immunity therapy with drops for many years with that were not effective for her. She does have significant allergies. She has not had allergy testing in a few years. The patient does not have any birds at home denies any exposure to mold. The patient has not been hospitalized since her last hospitalization as [place] which is reassuring. Will try to maximize her respiratory therapy by adding a long-acting muscarinic antagonist to her regimen. The patient already has a nebulizer. I do believe that she will be a very good candidate for biologic therapy in view of her significant asthma and multiple hospitalizations. The patient did have pulmonary function studies relatively recent. She will bring a copy or I will try to get some of the results. Will follow-up in 6-8 weeks to Reassess and to review the blood work and to consider biologic therapies. 02/22/2022 the patient is here for a pulmonary follow-up visit. Overall the patient continues to do well. She did not get the Breztri inhaler for some reason. Therefore she has continued to use her Symbicort. She has a low-dose 80/4.5 mcg Symbicort. She does have some chest tightness on examination and still has to use her rescue inhaler couple times a week. Therefore we need to further optimize her therapy by switching over to breztri. I will recent again to the pharmacy. I have reassured her that is very similar medication but just a little bit more Bronchodilation. The patient did not get her blood work. She is concerned about getting blood work. Clinically the patient is doing well so therefore she can hold off on the blood work at this time. If however, during the springtime her symptoms worsen she should come in to get the blood work to further evaluate for the possibility of biologic therapy. Also getting the allergy testing will allow her to get a sense of potential triggers that could be activating her asthma overall the patient is doing well. 08/23/2022 the patient is here for a pulmonary follow-up visit. Now she is in her 2nd trimester. The patient continues to have significant chest tightness and wheezing. She has been using her nebulizer several times a day. She has also has a prescription for Symbicort Spiriva. But on further questioning she does not seem to be using them as prescribed. We did talk about the importance of doing so. In addition to that she does have wheezing on examination and chest tightness. I did provide her peak flow. Her peak flow was 450 mL. Explained to her that this is the her reassuring measurements. She is going to continue monitoring to make sure that she can also objectively assess her airway resistance. Patient also was provided budesonide. She was budesonide new morning along with albuterol since it appears that the nebulizer is more effective for her. 11/12/2024 the patient is here for pulmonary follow-up visit. Overall she is doing okay. She has run out of medications. Her asthma has been acting up. She does have chest tightness. She uses her rescue inhaler on a daily basis. The patient had been on Symbicort before but did not see any significant improvement. She also has been on Spiriva. Will go ahead and switch over to Trelegy 200 to see if we can maximize her respiratory medications. In addition to that she should continue with the loratadine in the Singulair. She does respond well to the Xopenex inhaler which I will send her as well. She will monitor closely symptoms. Have her get an x-ray. If any issues arise she can always call. The patient may also benefit from biologics if her symptoms persist. She can always call and we can do additional blood work done. Otherwise will follow-up in a year's time. [facility], [facility] Medical History (Updated 08/24/22 @ 08:31 by Ruel Amaya MD) Chronic allergic rhinitis Asthma Bronchiolitis Anxiety Asthma Surgical History (Updated 10/31/21 @ 06:20 by Madelyn Miller MD) No pertinent past surgical history Family History (Updated 10/31/21 @ 06:20 by Madelyn Miller MD) Other No family history of coronary artery disease Social History Alcohol intake: current Patient Tobacco Use Status: Never used Tobacco service: No Current occupational status: employed [employer] Denies chills, Denies fever(s), Denies headache(s) and Denies night sweats ENT Reports Normal hearing present, Denies headache(s), Denies nasal congestion, Denies nasal discharge, Denies sinus pain, Denies sinus pressure and Denies sore throat Card Denies chest pain, Denies leg edema, Reports dyspnea and Reports dyspnea on exertion Resp Denies chest congestion, Denies cough, Denies excessive phlegm production, Denies pain on inspiration, Denies pain with cough, Reports dyspnea, Reports dyspnea on exertion, Denies stridor and Reports wheezing Musc Denies myalgias Skin/Breast Denies rash Neuro Reports Normal hearing present and Denies headache(s) Aller/Immun Reports wheezing Physical Exam Vital Signs: Last Vital Signs Pulse 73 11/12/24 15:42 BP 90/56 L 11/12/24 15:42 Pulse Ox 96 11/12/24 15:42 Oxygen Delivery Method Room Air 11/12/24 15:42 BMI result Body Mass Index 23.8 Last Vital Signs Temp 97.6 F 10/31/21 05:12 Pulse 104 H 10/31/21 05:12 Resp 18 10/31/21 11:29 BP 122/83 10/31/21 05:12 Pulse Ox 98 10/31/21 07:12 O2 Del Method 10/31/21 07:12 O2 Flow Rate 2 10/31/21 07:12 Oxygen Flow Rate 2 10/30/21 20:16 BMI result Body Mass Index 27.4 Const General: comfortable HEENT Head: Yes normal to inspection Eyes General: appearance normal, both eyes and all related structures Neck Neck: Yes supple Chest Chest palpation & inspection: normal inspection of the chest Resp Effort & Inspection: prolonged expiratory phase Auscultation: no crackles, no rhonchi and no wheezes Cardio Rate: regular rate Heart sounds: S1 normal heart sound present and S2 normal heart sound present GI Auscultation: normal bowel sounds Skin General skin exam: no rashes or lesions noted Neuro Cranial nerves: Yes Normal hearing present Extrem General: Yes no clubbing, cyanosis or edema Assessment & Plan Assessment & Plan (1) Asthma: Code(s): J45.909 - Unspecified asthma, uncomplicated Category: Medical Qualifiers: Asthma complication type: uncomplicated Asthma persistence: persistent Asthma severity: moderate Qualified Code(s): J45.40 - Moderate persistent asthma, uncomplicated (2) Chronic allergic rhinitis: Code(s): J30.9 - Allergic rhinitis, unspecified Category: Medical Plan start Trelegy Xopenex as needed continue singulair continue Loratidine CXR F/U 12 months Orders: Orders XR chest 2V Today J45.40 - Moderate persistent asthma, uncomplicated Medications: New [id number] 200-62.5-25 mcg (Trelegy Ellipta) 1 inh inhalation DAILY 60 ea 12RF 30 days Changed From loratadine 1 tab PO DAILY To loratadine 10 mg PO DAILY 90 tabs 3RF 90 days From levalbuterol tartrate 45 mcg/actuation 2 puffs PO Q6H PRN 15 ea 7RF for wheezing J45.909 - Unspecified asthma, uncomplicated To levalbuterol tartrate 45 mcg/actuation 2 puffs PO Q6H PRN 1 ea 11RF for wheezing 30 days J45.909 - Unspecified asthma, uncomplicated Refilled montelukast 10 mg PO BEDTIME 90 tabs 3RF Coding Level of Care Code Est Pt Level 4 (62380) Diagnoses Moderate persistent asthma without complication J45.40 Asthma complication type: uncomplicated Asthma persistence: persistent Asthma severity: moderate Chronic allergic rhinitis J30.9 Time Spent (min) 16
== END 2024-11-12 15:59 | disposition home or self-care (01) ==
LOC: HO.HPS 15:40
PROVIDERS: Visit Provider Hospitalist
DX: J45.40 Moderate persistent asthma, uncomplicated (principal); J30.9 Allergic rhinitis, unspecified
CPT/HCPCS: 99214

== ENCOUNTER 2024-11-12 15:40 | Outpatient (REF) | payer OTHER, SELFPAY ==
--- NOTE | ~2024-11-12 | XR_ITS ---
EXAMINATION: XR CHEST CLINICAL INFORMATION: J45.40 - Moderate persistent asthma, uncomplicated COMPARISON: 10/30/2021 TECHNIQUE: 2 views of the chest were obtained. FINDINGS: No significant abnormality is noted involving the heart, lungs, mediastinum, bony thorax or soft tissues. XR/XR chest 2V IMPRESSION: No acute disease Electronically signed by: Sundeep Patel MD 11/12/2024 05:04 PM EDT
== END 2024-11-12 15:41 | disposition home or self-care (01) ==
LOC: HO.XRAY 15:40
PROVIDERS: Visit Provider Hospitalist
DX: J45.40 Moderate persistent asthma, uncomplicated (principal)
CPT/HCPCS: 71046; 99212

== ENCOUNTER → 2024-11-12 16:13 | Outpatient (BNV) | payer OTHER, SELFPAY | PROVIDERS: Visit Provider Radiology Diagnostic Radiology | DX: J45.40 Moderate persistent asthma, uncomplicated (principal) | CPT/HCPCS: 71046 ==